=== PATIENT | female | born 1995 | race Hispanic/Latino ===

== ENCOUNTER 2017-03-10 11:31 | Emergency (ER) | payer SELFPAY ==
[2017-03-10 12:08] LABS: BASOPHILS % (AUTO) 0.4 % (0.0-5.0); EOSINOPHILS % (AUTO) 1.9 % (0.0-8.0); HEMATOCRIT 34.5 % (36-48); LYMPHOCYTES % (AUTO) 28.1 % (21.0-51.0); MEAN CORPUSCULAR HEMOGLOBIN 25.6 pg (27.0-33.0); MEAN CORPUSCULAR HGB CONC 33.4 g/dL (32.0-36.0); MEAN CORPUSCULAR VOLUME 76.6 fL (79-99); MONOCYTES % (AUTO) 8.7 % (3.0-13.0); NEUTROPHILS % (AUTO) 60.9 % (40.0-77.0); PLATELET COUNT (AUTO) 326 K/uL (130-400); RED CELL DISTRIBUTION WIDTH 18.2 % (11.0-15.5); WHITE BLOOD COUNT (AUTO) 5.2 K/uL (4.8-10.8)
[2017-03-10 12:14] LABS: BILIRUBIN,URINE Negative (NEGATIVE); COLOR,URINE Yellow (YELLOW); GLUCOSE, URINE (UA) Negative (NEGATIVE); KETONES,URINE Trace mg/dL (NEGATIVE); LEUKOCYTE ESTERASE ,URINE Small (NEGATIVE); NITRATE,URINE Negative (NEGATIVE); OCCULT BLOOD,URINE Negative (NEGATIVE); PH,URINE 6.5 (5.0-8.0); PROTEIN,URINE Negative (NEGATIVE)
[2017-03-10 12:15] LABS: CREATININE 0.7 mg/dL (0.5-1.5); POTASSIUM 3.4 mmol/L (3.5-5.1)
[2017-03-10 12:25] LABS: ALBUMIN 3.7 g/dL (3.5-5.0); BILIRUBIN,TOTAL 0.4 mg/dL (0.2-1.0); TOTAL PROTEIN, SERUM 7.5 g/dL (6.0-8.3)
[2017-03-10 12:40] LABS: APPEARANCE,URINE SLIGHTLY CLOUDY (CLEAR); BACTERIA,URINE Few /HPF (None Seen); RBC,URINE None Seen /HPF (0-1)
== END 2017-03-10 13:03 | disposition home or self-care (01) ==
LOC: EDH 11:31
DX: R10.12 Left upper quadrant pain (principal); J45.909 Unspecified asthma, uncomplicated
CPT/HCPCS: 36415; 80053; 81001; 83690; 84702; 84703; 85025

== ENCOUNTER 2019-01-30 18:37 | Inpatient (IN) | payer MEDICAID ==
[~2019-01-30] VITALS: Ht 160 cm; Wt 96.6 kg
[2019-01-30] MEDS ORDERED: LACTATED RINGERS 1000ML 1,000 ML IV PRN (19:09)
[2019-01-30] MEDS ORDERED: AMPICILLIN 2GM+NS 100ML 100 ML IV SCH (19:15)
[2019-01-30 19:45] LABS: HEMATOCRIT 33.7 % (36-48); MEAN CORPUSCULAR HEMOGLOBIN 27.9 pg (27.0-33.0); MEAN CORPUSCULAR HGB CONC 33.5 g/dL (32.0-36.0); MEAN CORPUSCULAR VOLUME 83.1 fL (79-99); NUCLEATED RED BLOOD CELLS 0.1 % (0.0-0.19); PLATELET COUNT (AUTO) 193 K/uL (130-400); RED BLOOD CELL COUNT(AUTO) 4.05 MIL/uL (4.00-5.50); WHITE BLOOD COUNT (AUTO) 7.6 K/uL (4.8-10.8)
[2019-01-30] MEDS ORDERED: OXYTOCIN-LR 20 UNITS/1000 ML 1,000 ML IV SCH (19:45)
[2019-01-30 20:14] LABS: APPEARANCE,URINE Clear (CLEAR); BILIRUBIN,URINE Negative (NEGATIVE); COLOR,URINE Yellow (YELLOW); GLUCOSE, URINE (UA) Negative (NEGATIVE); KETONES,URINE Negative (NEGATIVE); LEUKOCYTE ESTERASE ,URINE Negative (NEGATIVE); NITRATE,URINE Negative (NEGATIVE); OCCULT BLOOD,URINE Negative (NEGATIVE); PH,URINE 6.5 (5.0-8.0); PROTEIN,URINE Negative (NEGATIVE)
[2019-01-30 20:21] LABS: AMPHET/METH SCREEN,URINE NEGATIVE (NEGATIVE); BARBITURATE SCREEN, URINE NEGATIVE (NEGATIVE); BENZODIAZEPINES SCREEN,URINE NEGATIVE (NEGATIVE); CANNABINOID SCREEN,URINE NEGATIVE (NEGATIVE); COCAINE SCREEN,URINE NEGATIVE (NEGATIVE); OPIATE SCREEN,URINE NEGATIVE (NEGATIVE); PHENCYCLIDINE SCREEN,URINE NEGATIVE (NEGATIVE)
[2019-01-31] MEDS: AMPICILLIN 1GM+NS 50ML 50 ML IV SCH ×2 (00:04→03:47)
[2019-01-31] MEDS ORDERED: PREN1TAB80 PO (01:52)
[2019-01-31] MEDS ORDERED: FERR-82 PO (01:52)
[2019-01-31] MEDS ORDERED: FLU VACC QS2019-20 36MOS UP/PF 60 MCG/0.5 ML ML IM SCH (09:00)
[2019-01-31] MEDS ORDERED: MEPERIDINE-PF 50 MG/ML SYG ONE (09:27)
[2019-01-31] MEDS ORDERED: MEPERIDINE-PF 50 MG/ML SYG IVP SCH (09:30)
[2019-01-31] MEDS ORDERED: PROMETHAZINE HCL 25 MG/ML 1ML AMPULE IM SCH (09:30)
[2019-01-31] MEDS ORDERED: EPHEDRINE SULFATE 50 MG/ML AMPULE IVP PRN (11:30)
[2019-01-31] MEDS ORDERED: LACTATED RINGERS 500 ML 500 ML IV PRN (11:30)
[2019-01-31] MEDS ORDERED: NALOXONE HCL 0.4 MG/1 ML ML IV PRN (11:30)
[2019-01-31] MEDS ORDERED: FENTANYL CITRATE PF 50 MCG/1 ML 2ML VIAL ONE (11:47)
[2019-01-31] MEDS ORDERED: MEASLES/MUMPS/RUBELLA VACCINE, LIVE 0.5 ML/VIAL SQ PRN (14:00)
[2019-01-31] MEDS ORDERED: WITCH HAZEL 1 PAD TP PRN (14:00)
[2019-01-31] MEDS ORDERED: LANOLIN 30GM OINTMENT TP PRN (14:00)
[2019-01-31] MEDS ORDERED: ACETAMINOPHEN 325 MG TAB PO PRN (14:00)
[2019-01-31] MEDS ORDERED: ACETAMINOPHEN-CODEINE 300/30MG TAB PO PRN (14:00)
[2019-01-31] MEDS ORDERED: BENZOCAINE/LANOLIN/ALOE VERA 60 ML AEROSOL TP PRN (14:00)
[2019-01-31] MEDS ORDERED: OXYTOCIN-LR 20 UNITS/1000 ML 1,000 ML IV SCH (14:00)
[2019-01-31] MEDS ORDERED: DIPH,PERTUSS(ACELL),TET VAC/PF 0.5 ML VIAL IM PRN (14:00)
[2019-01-31 14:25] VITALS: BP 114/65
[2019-01-31 16:19] VITALS: BP 124/68
[2019-01-31] MEDS ORDERED: FLU VACC QS2019-20 36MOS UP/PF 60 MCG/0.5 ML ML IM ONE (18:30)
[2019-01-31 19:57] VITALS: BP 129/75
[2019-01-31] MEDS: DOCUSATE SODIUM 100 MG CAP PO SCH (21:28)
[2019-01-31 23:25] VITALS: BP 102/54
[2019-02-01 03:39] VITALS: BP 120/62
[2019-02-01] MEDS: IBUPROFEN 600 MG TABLET PO PRN ×2 (05:11→14:17)
[2019-02-01 05:35] LABS: HEMATOCRIT 30.7 % (36-48); MEAN CORPUSCULAR HEMOGLOBIN 27.9 pg (27.0-33.0); MEAN CORPUSCULAR HGB CONC 33.7 g/dL (32.0-36.0); MEAN CORPUSCULAR VOLUME 82.7 fL (79-99); PLATELET COUNT (AUTO) 164 K/uL (130-400); RED BLOOD CELL COUNT(AUTO) 3.71 MIL/uL (4.00-5.50); RED CELL DISTRIBUTION WIDTH 20.4 % (11.0-15.5); WHITE BLOOD COUNT (AUTO) 7.4 K/uL (4.8-10.8)
[2019-02-01 07:14] LABS: HEPATITIS Bs ANTIGEN SCREEN P Negative (Negative)
[2019-02-01 07:42] VITALS: BP 136/80
[2019-02-01] MEDS: DOCUSATE SODIUM 100 MG CAP PO SCH (08:52)
[2019-02-01 11:19] VITALS: BP 134/79
--- NOTE | 2019-02-01 12:33 | NUR ---
HX of +UDS for THC on 10/05 and 01/05 Agustin met with pt who lives with her BF John Earl [phone]. This is second child for couple-1yro son and NB Mandi Earl. Pt has a 7yro daughter from previous relationship. Pt and family live in mobile home and state all utilities are working at this time. Pt and BF work at [employer], pt has medicaid WIC and Food stamp assistance. Couple has basic items for NB and Dr Gusman will follow NB after dc. Pt reports good support system in [facility]. Pt denies any hx of abuse, domestic violence, mental health issues, CPS. Pt has hx of arrest, nothing pending. Pt asked about +UDS on 10/05 and 01/05. Pt denies being a THC user, states that she was at a friends constitution party and everyone was smoking marijuana. SW informed pt that Meconium was pending and if positive, report would be made to CPS. Pt voiced understanding. Agustin called local CPS office. Pt has hx with CPS and last case was closed August. Advised to make new report. Agustin called in new report to Ivonne at [phone]. ID# [id number]. CPS aware pt to dc today. Sakina Byrnes and CPS will follow up at home.
--- NOTE | 2019-02-01 15:00 | NUR ---
DISCHARGE INSTRUCTIONS GIVEN AND INSTRUCTED ON NEED TO CONTINUE TAKING VITAMINS WHILE AND TAKE MOTRIN OVER THE COUNTER NEEDED FOR UTERINE CRAMPING. DOSAGE AND FREQUENCY INSTRUCTED AND PATIENT VERBALIZED UNDERSTANDING.
--- NOTE | 2019-02-01 15:05 | NUR ---
PATIENT WAS TAKEN VIA W/C TO [facility]ILY [facility] IN [place] AND WAS DISCHARGED TO HER SIGNIFICANT OTHER. PATIENT IS STABLE AND DENIES PAIN.
== END 2019-02-01 15:05 | disposition home or self-care (01) | DRG 560 ==
LOC: LDH 18:37 → WSH 01-31 14:25
PROVIDERS: ADMIT Obstetrics & Gynecology; ATTEND Obstetrics & Gynecology
PROC: 10E0XZZ Delivery of Products of Conception, External Approach (ICD-10-PCS; principal; 2019-01-30)
PROC: 3E0S3BZ Introduction of Anesthetic Agent into Epidural Space, Percutaneous Approach (ICD-10-PCS; 2019-01-30)
PROC: 00HU33Z Insertion of Infusion Device into Spinal Canal, Percutaneous Approach (ICD-10-PCS; 2019-01-30)
PROC: 10907ZC Drainage of Amniotic Fluid, Therapeutic from Products of Conception, Via Natural or Artificial Opening (ICD-10-PCS; 2019-01-30)
PROC: 3E033VJ Introduction of Other Hormone into Peripheral Vein, Percutaneous Approach (ICD-10-PCS; 2019-01-30)
PROC: 3E02340 Introduction of Influenza Vaccine into Muscle, Percutaneous Approach (ICD-10-PCS; 2019-01-30)
PROC: 3E0134Z Introduction of Serum, Toxoid and Vaccine into Subcutaneous Tissue, Percutaneous Approach (ICD-10-PCS; 2019-01-30)
PROC: 3E0234Z Introduction of Serum, Toxoid and Vaccine into Muscle, Percutaneous Approach (ICD-10-PCS; 2019-01-30)
DX: O99.824 Streptococcus B carrier state complicating childbirth (principal); Z37.0 Single live birth; Z23 Encounter for immunization; Z3A.39 39 weeks gestation of pregnancy
CPT/HCPCS: 36415; 80305; 81003; 85027; 86592; 86850; 86900; 86901; 87340; 90715; A4314; A4351; G0378; J0290; J2175; J2590; J3010; J7120; Q2035